=== PATIENT | male | born 2005 | race Asian ===

== ENCOUNTER 2024-03-26 20:08 | Emergency (ER) | payer OTHER ==
[~2024-03-26] VITALS: Ht 162.6 cm; Wt 81.0 kg
[2024-03-26 20:26] VITALS: TEMP 99.2
[2024-03-26] MEDS: PERTUSS(ACELL),DIPH,TET/PF 0.5 ML SYRINGE [ADULT] IM. ONE (21:07)
[2024-03-26] MEDS: LIDOCAINE 1% 10 ML VIAL ID ONE (21:26)
[2024-03-26] MEDS ORDERED: CEPH-558 PO (21:45)
[2024-03-26] MEDS: CEPHALEXIN MONOHYDRATE 500 MG CAPSULE PO ONE (22:03)
[2024-03-26 22:05] VITALS: BP 124/53; PULSE 67; RESP 16
== END 2024-03-26 22:07 | disposition home or self-care (01) ==
LOC: EMS 20:10
DX: S61.233A Puncture wound without foreign body of left middle finger without damage to nail, initial encounter (principal); J45.909 Unspecified asthma, uncomplicated; F12.90 Cannabis use, unspecified, uncomplicated; W45.8XXA Other foreign body or object entering through skin, initial encounter; Y93.89 Activity, other specified; Y92.89 Other specified places as the place of occurrence of the external cause; Y99.8 Other external cause status
CPT/HCPCS: 99283; 73140; 90715; 90471; J3490

== ENCOUNTER 2024-06-04 22:53 | Emergency (ER) | payer OTHER ==
[~2024-06-04] VITALS: Ht 162.6 cm; Wt 77.3 kg
[~2024-06-04 22:53] MED LIST: CEPH-558 PO
[2024-06-04 22:58] VITALS: TEMP 98.2
[2024-06-04 23:18] VITALS: BP 141/76; PULSE 64; RESP 16
[2024-06-04] MEDS ORDERED: PERTUSS(ACELL),DIPH,TET/PF 0.5 ML SYRINGE [ADULT] IM. ONE (23:45)
[2024-06-04] MEDS ORDERED: CIPR500T10 PO (23:50)
[2024-06-04] MEDS: IBUPROFEN 600 MG TABLET PO ONE (23:50)
[2024-06-04] MEDS: CIPROFLOXACIN HCL 250 MG TABLET PO ONE (23:51)
== END 2024-06-05 00:06 | disposition home or self-care (01) ==
LOC: EMS 22:55
DX: T63.514A Toxic effect of contact with stingray, undetermined, initial encounter (principal); J45.909 Unspecified asthma, uncomplicated; F12.90 Cannabis use, unspecified, uncomplicated; Z98.890 Other specified postprocedural states; X58.XXXA Exposure to other specified factors, initial encounter
CPT/HCPCS: 99283